=== PATIENT | male | born 1945 | race Caucasian/White ===

== ENCOUNTER 2016-06-18 12:07 | Emergency (ER) | payer MEDICARE, MEDICAID ==
[2016-06-18] MEDS ORDERED: ASPIRIN CHEW 81 MG TABLET PO STA (13:10)
[2016-06-18] MEDS ORDERED: ASPIRIN CHEW 81 MG TABLET ONE (13:24)
== END 2016-06-18 14:45 | disposition home or self-care (01) ==
DX: R07.9 Chest pain, unspecified (principal); I10 Essential (primary) hypertension; J44.9 Chronic obstructive pulmonary disease, unspecified; F17.200 Nicotine dependence, unspecified, uncomplicated
CPT/HCPCS: 36415; 71020; 80053; 83690; 83880; 84484; 85025; 85610; 85730; 93005; 93010; 99284; 99285; A9270

== ENCOUNTER 2017-04-08 14:53 | Outpatient (CLI) | payer MEDICARE, MEDICAID | END 2017-04-08 14:54 | disposition critical access hospital (66) | LOC: EMS 14:53 | PROVIDERS: ATTEND Surgery | DX: R55 Syncope and collapse (principal); R20.0 Anesthesia of skin; H53.9 Unspecified visual disturbance; R41.0 Disorientation, unspecified | CPT/HCPCS: A0425; A0427 ==

== ENCOUNTER 2017-04-08 15:18 | Inpatient (IN) | payer MEDICARE, MEDICAID ==
--- NOTE | 2017-04-08 15:30 | ED Physician Documentation ---
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 denies: Difficulty speaking, Headache, Head injury Endocrine: denies: Easy bruising / bleeding Immunocompromised: denies: Immunocompromised PD PAST MEDICAL HISTORY - Past Medical History Cardiovascular: Hypertension Respiratory: COPD - Past Surgical History Past Surgical History: Yes - Present Medications Home Medications: Ambulatory Orders Medication Instructions Recorded Confirmed Atenolol 100 mg PO DAILY 06/18/16 04/08/17 Benazepril HCl 20 mg PO DAILY 06/18/16 04/08/17 Chlorhexidine Gluconate 15 ml PO DAILY 04/08/17 04/08/17 Fluticasone/Salmeterol [Advair 1 puffs INH DAILY 04/08/17 04/08/17 250-50 Diskus] Tadalafil [Cialis] 10 mg PO PRN PRN 04/08/17 04/08/17 - Allergies Allergies/Adverse Reactions: Allergies Allergy/AdvReac Type Severity Reaction Status Date / Time Penicillins Allergy Unknown Verified 04/08/17 15:38 - Social History Does the pt smoke?: Yes Smoking Status: Current every day smoker Does the pt drink ETOH?: Yes PD ED PE NORMAL - Vitals Vital signs reviewed: Yes - General General: Alert and oriented X 3 - HEENT HEENT: PERRL, EOMI, Other (R visla field deficit) - Neck Neck: Supple, no meningeal sign - Cardiac Cardiac: RRR - Respiratory Respiratory: No respiratory distress, Clear bilaterally - Abdomen Abdomen: Soft, Non tender - Derm Derm: Normal color - Neuro Neuro: Alert and oriented X 3, Normal speech. No: psychiatric aide 2-12 intact (dec sensation R face), No motor deficit (R leg barely moves vs gravity), No sensory deficit (dec to right side) Eye Opening: Spontaneous Motor: Obeys Commands Verbal: Oriented GCS Score: 15 Results - Vitals Vitals: Vital Signs - 24 hr 04/08/17 04/08/17 04/08/17 15:22 15:49 15:52 Temperature 36.4 C L Heart Rate 58 L 60 53 L Respiratory 15 14 Rate Blood Pressure 193/119 H 176/123 H 179/97 H O2 Saturation 100 100 04/08/17 04/08/17 04/08/17 16:05 16:07 16:26 Temperature Heart Rate 56 L 56 L 57 L Respiratory 12 16 16 Rate Blood Pressure 204/107 H 175/96 H 161/83 H O2 Saturation 100 98 100 04/08/17 16:58 Temperature Heart Rate 54 L Respiratory 12 Rate Blood Pressure 153/95 H O2 Saturation 99 Oxygen O2 Source Nasal cannula - EKG (time done) 1537 Rate: Rate (enter#) Rhythm: NSR [place]: Normal Intervals: Wide QRS (borderline) Ischemia: Normal ST segments - Labs Labs: Laboratory Tests 04/08/17 04/08/17 04/08/17 15:21 15:21 15:44 WBC 6.7 RBC 4.72 Hgb 15.4 Hct 45.2 MCV 95.7 H MCH 32.7 H MCHC 34.2 RDW 13.0 Plt Count 117 L MPV 8.0 Neut # 4.3 Lymph # 1.6 [place] # 0.7 Eos # 0.1 Baso # 0.0 Absolute Nucleated RBC 0.01 Nucleated RBC % 0.1 PT 11.6 INR 1.0 Sodium 135 Potassium 4.1 Chloride 103 Carbon Dioxide 25 Anion Gap 7.0 BUN 22 H Creatinine 1.0 Estimated GFR (MDRD) 74 L Glucose 93 Calcium 9.0 - Rads (name of study) CTH Radiology: See rad report (neg) CTA head Radiology: See rad report (unremarkable) CTA neck Radiology: See rad report (unremarkable) PD MEDICAL DECISION MAKING - ED course ED course: code stroke well within 3 hr window pt to CT had labetalol ready but BP declined s intervention [place] neuro on telestroke and evaluated pt at 1550 his sx improving - now no weakness at all, decreasing numbness, still with visual loss furthermore he recalls a prior head injury in [place] 20 yr ago where he was hospitalized and surgery was considered but he does not know if he had bleeding in the brain at that time given possible prior ICH 2/2 trauma and BP and improving sx and low NIHSS neuro does not rec TPA at this time but would like to get stat CTA head and neck to determine possible plan of care CTAs neg sx resolved except visal field defect neuro rec no TPA or IR intervention and to admit [place] for rest of stroke wup such as MRI, serial neuro exams etc gave asa spoke to hospitalist Dr Douglas at 1710 - TPA CVA checklist Inclusion crititeria: positive: Sig neuro deficit, CT no bleed, Onset know < 4.5 hr Absolute contraindications: negative: CT shows bleed, CT shows major est CVA, Known bleeding disorder, Surgery/trauma < 15 days, Seizure at onset, Internal bleed < 22 days, Brain/spine surg < 3 m, Head trauma < 3 m, CVA < 3 months, Any hx ICH, Any hx brain aneurysm, Any hx brain AVM, Any hx brain tumor, Suspect SAH Relative contraindications: negative: Too mild, Rapid improvement, Glusose <50 > 400, Life expectancy < 1 yr, Severe comorbid illness, Bacterial endocarditis, Severe hepatic dz, Severe renal dz, Hemorrhagic eye condition, Septic thrombophlebitis, Infected AV shunt, On coumadin, , Advanced age, Left heart thrombus Absolute contraindications if 3-4.5 hr: negative: Coumadin (any INR), Age > 80, Combo prior CVA & DM Departure - Departure Disposition: ED Place in Observation Clinical Impression: Cerebrovascular accident (CVA) Condition: Fair NIHSS - Time Time: 15:20 - Level of Consciousness Level of consciousness: (0) Alert, Keenly responsive LOC Questions: (0) Answers both Q's correct LOC Commands: (0) Performs both correctly - Gaze Best Gaze: (0) Normal - Visual Visual: (1) Partial hemianopia (states vision better now) - Facial Palsy Facial Palsy: (0) Normal, symmetrical movement - Motor Arms (both separate) Motor Arm (right): (0) No drift Motor Arm (left): (0) No drift - Motor Legs (both separate) Motor Leg (right): (2) Some effort against gravity Motor Leg (left): (0) No drift - Limb Ataxia Limb Ataxia: (0) Absent - Sensory Sensory: (1) Sugb-ga-aosorkyx loss - Best Language Best Language: (0) No aphasia - Dysarthria Dysarthria: (0) Normal - Extinction and Inattention (formally neg Extinction and inattention: (0) No abnormality - Total Score/Results Total Score/Result: 4
[2017-04-08 15:38] LABS: BASOPHILS % (AUTO) 0.7 %; EOSINOPHILS # (AUTO) 0.1 10^3/uL (0.0-0.7); EOSINOPHILS % (AUTO) 1.4 %; HGB - HEMOGLOBIN 15.4 g/dL (14.0-18.0); LYMPHOCYTES # (AUTO) 1.6 10^3/uL (1.5-3.5); LYMPHOCYTES % (AUTO) 23.9 %; MEAN CORPUSCULAR HEMOGLOBIN 32.7 pg (27.0-31.0); MEAN CORPUSCULAR HGB CONC 34.2 g/dL (32.0-36.0); MEAN CORPUSCULAR VOLUME 95.7 fL (80.0-94.0); MONOCYTES # (AUTO) 0.7 10^3/uL (0.0-1.0); MONOCYTES % (AUTO) 10.1 %; NEUTROPHILS # (AUTO) 4.3 10^3/uL (1.5-6.6); NEUTROPHILS % (AUTO) 63.9 %; PLT - PLATELET COUNT 117 10^3/uL (130-450); RED BLOOD COUNT 4.72 10^6/uL (4.70-6.10); WHITE BLOOD COUNT 6.7 x10^3/uL (4.8-10.8)
--- NOTE | 2017-04-08 15:43 | CT Report ---
EXAM: CT HEAD EXAM DATE: 04/08/2017 03:34 PM. CLINICAL HISTORY: Right side numbness and right leg weakness, onset 1415. COMPARISON: None. TECHNIQUE: Multiaxial CT images were obtained from the foramen magnum to the vertex. Reformats: Coron al. IV contrast: None. In accordance with CT protocol optimization, one or more of the following dose reduction techniques w ere utilized for this exam: automated exposure control, adjustment of mA and/or KV based on patient s ize, or use of iterative reconstructive technique. FINDINGS: Parenchyma: No intraparenchymal hemorrhage. No evidence of mass, midline shift, or CT findings of inf arction. Kaminski-white differentiation is distinct. Extraaxial Spaces: Normal for age. No subdural or epidural collections identified. Ventricles: Normal in size and position. Sinuses and Orbits: Imaged paranasal sinuses, orbits, and mastoids show no significant abnormality. Bones: No evidence of fracture or calvarial defect. Other: None. IMPRESSION: Normal head CT. [facility] The call report notification system was initiated by Dr. Mihir Santiago at 15:39 hrs on 04/08/17. The above findings were discussed with Dr. Ospina by Dr. Mihir Santiago at 15:41 hrs on 04/08/17. Referring Provider Line: [phone] SITE ID: [id number]
[2017-04-08] MEDS ORDERED: LABETALOL 20 MG/4 ML SYRINGE IVP STA (15:49)
[2017-04-08 15:54] LABS: PT - PROTHROMBIN TIME 11.6 secs (9.9-12.6)
[2017-04-08] MEDS ORDERED: IOPAMIDOL-300 100 ML VIAL ONE (16:15)
[2017-04-08] MEDS ORDERED: IOPAMIDOL-300 100 ML VIAL IVP ONE (16:39)
[2017-04-08] MEDS ORDERED: ASPIRIN CHEW 81 MG TABLET PO STA (16:58)
--- NOTE | 2017-04-08 17:10 | CT Report ---
EXAM: CT ANGIOGRAM NECK EXAM DATE: 04/08/2017 04:39 PM. CLINICAL HISTORY: Syncope, R numbness, R vision loss. COMPARISON: CT scan and CT angiogram of the head 04/08/2017. TECHNIQUE: Routine axial helical imaging was performed from the skull base through the aortic arch. R econstructions: Routine multiplanar 3D MIP reconstructions. IV Contrast: 80 cc Isovue 300. Evaluation of arterial stenosis is based on a NASCET method of measurement. In accordance with CT protocol optimization, one or more of the following dose reduction techniques w ere utilized for this exam: automated exposure control, adjustment of mA and/or KV based on patient s ize, or use of iterative reconstructive technique. FINDINGS: Moderate tortuosity with mild atherosclerotic intimal thickening and calcification is seen at the aor tic arch. Origin of great vessels off the arch is partially obscured by streak artifact from dense contrast in the left brachiocephalic vein. This particularly obscures the origin of the left common carotid arter y. There is apparent conjoined origin of right brachiocephalic and left common carotid arteries. Visu alized great vessels are patent. Right Carotid: The common carotid, internal carotid, and external carotid arteries are widely patent. No dissection, significant atherosclerotic plaque, or calcification identified. Mild atherosclerotic intimal thickening with minimal calcification is seen at the CCA bifurcation. No significant stenosi s. Left Carotid: The common carotid, internal carotid, and external carotid arteries are widely patent. No dissection, significant atherosclerotic plaque, or calcification identified. Mild atherosclerotic intimal thickening and vascular calcification is seen at the CCA bifurcation. No significant stenosis . Vertebrals: The vertebrobasilar system shows no stenoses. Left vertebral artery is dominant. Intracranial Circulation: (Please see report of CT angiogram performed same time.) Other: Moderate interstitial bullous changes seen in the visualized upper lung zones, greater on the right. Biapical pleural thickening and scarring is noted. The muscle and fascial planes of the neck are unremarkable. No lytic or blastic bony lesions are seen. Mild to moderate spondylosis is seen throughout the mid an d lower cervical spine. Right foraminal stenosis is seen at C3-C4 and C4-C5. IMPRESSION: 1. Unremarkable CT angiogram of the extracranial circulation. No significant stenosis. No dissection. 2. Mild atherosclerotic intimal thickening and calcification at the CCA bifurcation bilaterally. No s ignificant stenosis. 3. The left vertebral artery is dominant. Critical test: Findings are discussed with referring neurologist on 04/08/2017 at approximately 1700 hrs. [facility] Referring Provider Line: [phone] SITE ID: [id number]
--- NOTE | 2017-04-08 17:14 | CT Preliminary Report ---
Exam: CT HEAD ANGIO IMPRESSION: CT Head with contrast: 1. No abnormal intracranial enhancement. 2. No acute intracranial abnormality. CTA Head: 1. Unremarkable CT angiogram of the intracranial circulation. No significant stenosis. No aneurysm. Critical test: Findings are discussed with referring treating neurologist on 04/08/2017 at [facility] 1700 hrs. [facility] SITE ID: [id number]
--- NOTE | 2017-04-08 17:15 | CT Report ---
EXAM: CT ANGIOGRAM HEAD. CT SCAN OF THE HEAD WITH CONTRAST. EXAM DATE: 04/08/2017 04:39 PM CLINICAL HISTORY: Syncope, R numbness, visual loss. COMPARISON: CT scan of the head without contrast earlier in the day 04/08/2017. CT Deanna Gram of the neck 04/08/2017. TECHNIQUE: - CT Scan Head: Using a multidetector scanner, axial images were acquired from the foramen magnum to the skull vertex following contrast administration. - CT Angiogram: Using a multidetector scanner, high-resolution axial images were acquired from the sk ull base through vertex following rapid infusion of intravenous contrast. Reformats: Multiplanar MIP reformats were reconstructed. Nascet criteria used for stenosis measurement. IV Contrast: 80 cc Isovue 300. In accordance with CT protocol optimization, one or more of the following dose reduction techniques w ere utilized for this exam: automated exposure control, adjustment of mA and/or KV based on patient s ize, or use of iterative reconstructive technique. FINDINGS: POST-CONTRAST HEAD: No abnormal intracranial enhancement is seen. No mass or hemorrhage is seen. CT ANGIOGRAM HEAD: RIGHT: Internal Carotid artery: No evidence of dissection. No evidence of aneurysm along the intracranial IC A. Anterior Cerebral Artery: Patent without significant stenosis, aneurysm, or vascular malformation. Middle Cerebral Artery: Patent without significant stenosis, aneurysm, or vascular malformation. Posterior Cerebral Artery: Patent without significant stenosis, aneurysm, or vascular malformation. Posterior Communicating Artery: Not visualized. Vertebral Artery: Patent without significant stenosis. No evidence of dissection. Small in caliber, p rimarily terminating as the right PICA. Small distal communication to the basilar artery is seen. LEFT: Internal Carotid artery: No evidence of dissection. No evidence of aneurysm along the intracranial IC A. Anterior Cerebral Artery: Patent without significant stenosis, aneurysm, or vascular malformation. Middle Cerebral Artery: Patent without significant stenosis, aneurysm, or vascular malformation. Posterior Cerebral Artery: Patent without significant stenosis, aneurysm, or vascular malformation. Posterior Communicating Artery: Not visualized. Vertebral Artery: Patent without significant stenosis. No evidence of dissection. Dominant, primarily forming the basilar artery. CENTRAL: Anterior Communicating Artery: Patent. No aneurysm. Basilar Artery: Patent without significant stenosis. No aneurysm. DURAL VENOUS SINUSES AND MAJOR CENTRAL VEINS: Patent. IMPRESSION: CT Head with contrast: 1. No abnormal intracranial enhancement. 2. No acute intracranial abnormality. CTA Head: 1. Unremarkable CT angiogram of the intracranial circulation. No significant stenosis. No aneurysm. Critical test: Findings are discussed with referring treating neurologist on 04/08/2017 at [facility] 1700 hrs. [facility] Referring Provider Line: [phone] SITE ID: [id number]
[2017-04-08] MEDS ORDERED: TEMAZEPAM 15 MG CAPSULE PO PRN (17:17)
[2017-04-08] MEDS ORDERED: HYDROcod/ACETAM 5/325 MG TABLET PO PRN (17:17)
[2017-04-08] MEDS ORDERED: ONDANSETRON ODT 4 MG TABLET TL PRN (17:17)
[2017-04-08] MEDS ORDERED: SODIUM CHLORIDE FLUSH 0.9% 10 ML SYRINGE IVP PRN (17:17)
[2017-04-08] MEDS ORDERED: ONDANSETRON 4 MG/2 ML VIAL IVP PRN (17:17)
[2017-04-08] MEDS: SODIUM CHLORIDE FLUSH 0.9% 10 ML SYRINGE IVP SCH ×2 (19:15→20:59)
[2017-04-08] MEDS: ATORVASTATIN 40 MG TABLET PO SCH ×2 (19:15→20:59)
--- NOTE | 2017-04-08 20:13 | MRI Report ---
EXAM: MRI BRAIN WITHOUT CONTRAST EXAM DATE: 04/08/2017 06:23 PM. CLINICAL HISTORY: 71-year-old man with TIA/near syncope. COMPARISON: CTA done earlier the same day. TECHNIQUE: Multiplanar, multisequence T1-weighted and fluid-sensitive MR sequences of the brain were performed. Sequences optimized for routine evaluation. Other: None. IV Contrast: None. FINDINGS: Parenchyma: Geographic region of restricted diffusion with mild corresponding FLAIR hyperintensity is present throughout the medial left occipital lobe and posterior temporal lobe, consistent with acute infarct in the right PATIENT COORDINATOR territory. Affected parenchyma measures approximately 7.5 x 2.1 cm in maxim um axial dimensions. No evidence of hemorrhage. The remainder of the parenchyma demonstrates mild burden of nonspecific FLAIR hyperintensities in the deep cerebral and periventricular white matter, most consistent with sequelae of chronic small vesse l ischemic disease and a common finding in this age group. Pituitary: Unremarkable. Ventricles and Extra-axial Spaces: Ventricles are symmetric and normal in size for age. Extra-axial s paces are unremarkable. Orbits: Unremarkable. Sinuses: Paranasal sinuses and mastoid air cells are clear. Major Vascular Flow Voids: Intact. IMPRESSION: 1. Acute infarct (6 hours to 7 days) in the medial left occipital lobe and posterior temporal lobe. N o hemorrhage. 2. Mild white matter changes, most consistent with sequelae of chronic small vessel ischemic disease and a common finding in this age group. [facility] CRITICAL RESULT: The above findings were discussed with Norma, the patient's nurse by Dr. Lang licea at 20:10 hrs on 04/08/17. She will convey the findings to the hospitalist. Referring Provider Line: [phone] SITE ID: [id number]
[2017-04-08] MEDS ORDERED: CLOPIDOGREL 300 MG TABLET PO SCH (20:39)
[2017-04-09 06:15] LABS: ALBUMIN 3.5 g/dL (3.2-5.5); ALBUMIN/GLOBULIN RATIO 1.2 (1.0-2.2); BILIRUBIN,TOTAL 1.3 mg/dL (0.2-1.0); CALCIUM 8.6 mg/dL (8.5-10.3); TOTAL PROTEIN 6.4 g/dL (6.7-8.2)
[2017-04-09] MEDS: SODIUM CHLORIDE FLUSH 0.9% 10 ML SYRINGE IVP SCH ×2 (07:30→12:56)
[2017-04-09] MEDS: ATENOLOL 25 MG TABLET PO SCH (08:08)
[2017-04-09] MEDS: POLYETHYLENE GLYCOL 3350 17 GM PACKET PO SCH (08:10)
[2017-04-09] MEDS: ASPIRIN CHEW 81 MG TABLET PO SCH (08:10)
[2017-04-09] MEDS ORDERED: LISINOPRIL 20 MG TABLET PO SCH (09:00)
[2017-04-09] MEDS: ACETAMINOPHEN 325 MG TABLET PO PRN (10:36)
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
--- NOTE | 2017-04-09 18:04 | PROVIDER PROGRESS NOTE ---
Subjective - Prog Note Date Prog Note Date: 04/09/17 Prog Note Time: 17:51 - Subjective Pt reports feeling: No change Subjective: he is still confused, forgetful, and not able to see out of his right eye. but gets up to bathroom and able to eat. but can't see very well. denies headache. still intermittently tearful and will be embarrassed. Asks me several times why is he here. Current Medications - Current Medications Current Medications: Active Medications Acetaminophen (Tylenol) 650 mg PO Q4HR PRN PRN Reason: Pain 1 to 4 Last Admin: 04/09/17 10:36 Dose: 650 mg Acetaminophen/Hydrocodone Bitart ([place] 5/325) 1 tab PO Q4HR PRN PRN Reason: Pain 5 to 7 Aspirin ([place]ito Aspirin) 162 mg PO DAILY [facility] Last Admin: 04/09/17 08:10 Dose: 162 mg Atenolol (Tenormin) 100 mg PO DAILY [facility] Last Admin: 04/09/17 08:08 Dose: 100 mg Atorvastatin Calcium (Lipitor) 40 mg PO QPM [facility] Last Admin: 04/08/17 20:59 Dose: 40 mg Ondansetron HCl (Zofran Inj) 4 mg IVP Q6HR PRN PRN Reason: Nausea / Vomiting Ondansetron HCl (Zofran Odt) 4 mg TL Q6HR PRN PRN Reason: Nausea / Vomiting Polyethylene Glycol (Miralax) 17 gm PO DAILY [facility] Last Admin: 04/09/17 08:10 Dose: 17 gm Sodium Chloride (Normal Saline Flush 0.9%) 10 ml IVP PRN PRN PRN Reason: NEEDED PER PROVIDER ORDERS Sodium Chloride (Normal Saline Flush 0.9%) 10 ml IVP Q8HR [facility] Last Admin: 04/09/17 12:56 Dose: 10 ml Temazepam (Restoril) 15 mg PO QPM PRN PRN Reason: Insomnia Atenolol 100 mg PO DAILY 06/18/16 Benazepril HCl 20 mg PO DAILY 06/18/16 Chlorhexidine Gluconate 15 ml PO DAILY 04/08/17 Fluticasone/Salmeterol [Advair 250-50 Diskus] 1 puffs INH DAILY 04/08/17 Tadalafil [Cialis] 10 mg PO PRN PRN 04/08/17 Objective - Vital Signs/Intake & Output Reviewed Vital Signs: Yes Vital Signs: Vital Signs x48h Temp Pulse Resp BP Pulse Ox 04/09/17 16:11 36.7 C 59 L 20 149/90 H 95 04/09/17 12:57 37.1 C 64 18 147/82 H 94 Intake & Output: Intake & Output 04/06/17 04/07/17 04/08/17 04/09/17 23:59 23:59 23:59 23:59 Intake Total 250 920 Balance 250 920 - Objective General Appearance: positive: No acute distress, Alert, Other (tearful, forgetful) Eyes Bilateral: positive: PERRL, EOMI ENT: positive: Pharynx nml Neck: positive: No JVD, Lymphadenopathy (R) (shotty), Lymphadenopathy (L) ( shotty). negative: Stiff neck, Carotid bruit Respiratory: positive: Chest non-tender. negative: Wheezes, Rales, Rhonchi Cardiovascular: positive: Regular rate & rhythm. negative: Gallop/S4, Friction rub Abdomen: positive: Non-tender, No organomegaly, Nml bowel sounds, No distention Skin: positive: Warm, Dry Extremities: positive: Full ROM, No pedal edema Neurologic/Psychiatric: positive: Motor nml (but cerebellar affected mildly), Disoriented to time. negative: CN's nml (2-12) (subtle right facial droop), Mood/affect nml (tearful) - Lab Results Fish Bones: 04/08/17 15:21 04/09/17 05:45 Other Labs: Lab Results x24hrs 04/09/17 Range/Units 05:45 Sodium 136 (135-145) mmol/L Potassium 4.0 (3.5-5.0) mmol/L Chloride 107 (101-111) mmol/L Carbon Dioxide 22 (21-32) mmol/L Anion Gap 7.0 (6-13) BUN 17 (6-20) mg/dL Creatinine 1.0 (0.6-1.2) mg/dL Estimated GFR (MDRD) 74 L (>89) Glucose 100 (70-100) mg/dL Calcium 8.6 (8.5-10.3) mg/dL Total Bilirubin 1.3 H (0.2-1.0) mg/dL AST 21 (10-42) IU/L ALT 24 (10-60) IU/L Alkaline Phosphatase 80 (42-121) IU/L Total Protein 6.4 L (6.7-8.2) g/dL Albumin 3.5 (3.2-5.5) g/dL Globulin 2.9 (2.1-4.2) g/dL Albumin/Globulin Ratio 1.2 (1.0-2.2) Assessment/Plan - Problem List (1) Left middle cerebral artery stroke Impression: symptoms stable. no worsening. Plan: OT and speech eval for cognition continue plavix, asa still holding MARCO to allow permissive HTN change to inpatient status from OBV. case discussed with his Cynthia @[phone]. (2) HTN (hypertension) Impression: 120's to 140's systolic. No change in atenolol. Qualifiers: Hypertension type: essential hypertension Qualified Code(s): I10 - Essential (primary) hypertension (3) COPD (chronic obstructive pulmonary disease) Impression: with hx of tobacco abuse. still declines patch. exam neg for acute exacerbation. no change in managment.
[2017-04-09] MEDS: ATORVASTATIN 40 MG TABLET PO SCH (20:40)
[2017-04-10 06:13] LABS: CHOL/HDL RATIO 3.4 (<5.0); CHOLESTEROL 132 mg/dL; HDL CHOLESTEROL 39 mg/dL; LDL CHOLESTEROL,CALCULATED 84 mg/dL; LDL/HDL RATIO 2.2 (<3.6); VLDL CHOLESTEROL 9 mg/dL
[2017-04-10] MEDS: SODIUM CHLORIDE FLUSH 0.9% 10 ML SYRINGE IVP SCH ×3 (06:28→20:40)
[2017-04-10] MEDS: ATENOLOL 25 MG TABLET PO SCH (08:51)
[2017-04-10] MEDS: POLYETHYLENE GLYCOL 3350 17 GM PACKET PO SCH (08:53)
[2017-04-10] MEDS: ASPIRIN CHEW 81 MG TABLET PO SCH (08:53)
[2017-04-10] MEDS: BUDESONIDE 0.5 MG/2 ML NEB INH SCH ×2 (09:25→19:52)
[2017-04-10] MEDS: FORMOTEROL FUMARATE NEB 20 MCG/2 ML INH SCH ×2 (09:25→19:52)
--- NOTE | 2017-04-10 15:18 | PROVIDER PROGRESS NOTE ---
Subjective - Prog Note Date Prog Note Date: 04/10/17 Prog Note Time: 15:16 - Subjective Pt reports feeling: No change Subjective: he really can't remember much. I have to repeat constantly he's had a stroke. he knows he's in the hospital and very cooperative. walks in room and hallway. but memory, word finding, vision, all affected. he has stopped crying when I see him wheezing a bit more today. Current Medications - Current Medications Current Medications: Active Medications Acetaminophen (Tylenol) 650 mg PO Q4HR PRN PRN Reason: Pain 1 to 4 Last Admin: 04/09/17 10:36 Dose: 650 mg Acetaminophen/Hydrocodone Bitart ([place] 5/325) 1 tab PO Q4HR PRN PRN Reason: Pain 5 to 7 Aspirin ([place] Tito Aspirin) 162 mg PO DAILY [facility] Last Admin: 04/10/17 08:53 Dose: 162 mg Atenolol (Tenormin) 100 mg PO DAILY [facility] Last Admin: 04/10/17 08:51 Dose: 100 mg Atorvastatin Calcium (Lipitor) 40 mg PO QPM [facility] Last Admin: 04/09/17 20:40 Dose: 40 mg Budesonide (Pulmicort) 0.5 mg INH RTBID [facility] Last Admin: 04/10/17 09:25 Dose: 0.5 mg Formoterol Fumarate (Perforomist) 20 mcg INH RTBID [facility] Last Admin: 04/10/17 09:25 Dose: 20 mcg Ondansetron HCl (Zofran Inj) 4 mg IVP Q6HR PRN PRN Reason: Nausea / Vomiting Ondansetron HCl (Zofran Odt) 4 mg TL Q6HR PRN PRN Reason: Nausea / Vomiting Polyethylene Glycol (Miralax) 17 gm PO DAILY [facility] Last Admin: 04/10/17 08:53 Dose: Not Given Sodium Chloride (Normal Saline Flush 0.9%) 10 ml IVP PRN PRN PRN Reason: NEEDED PER PROVIDER ORDERS Sodium Chloride (Normal Saline Flush 0.9%) 10 ml IVP Q8HR [facility] Last Admin: 04/10/17 13:47 Dose: 10 ml Temazepam (Restoril) 15 mg PO QPM PRN PRN Reason: Insomnia Atenolol 100 mg PO DAILY 06/18/16 Benazepril HCl 20 mg PO DAILY 06/18/16 Chlorhexidine Gluconate 15 ml PO DAILY 04/08/17 Fluticasone/Salmeterol [Advair 250-50 Diskus] 1 puffs INH DAILY 04/08/17 Tadalafil [Cialis] 10 mg PO PRN PRN 04/08/17 Objective - Vital Signs/Intake & Output Reviewed Vital Signs: Yes Vital Signs: Vital Signs x48h Temp Pulse Pulse Pulse Pulse Resp BP 04/10/17 12:53 36.6 C 62 20 04/10/17 12:48 71 62 190/99 H 04/10/17 10:00 36.9 C 58 L 16 04/10/17 09:25 70 16 04/10/17 09:00 71 73 190/99 H 04/10/17 08:30 36.7 C 72 20 BP BP BP Pulse Ox 04/10/17 12:53 138/70 H 96 04/10/17 12:48 142/86 H 04/10/17 10:00 154/76 H 96 04/10/17 09:25 04/10/17 09:00 161/98 H 04/10/17 08:30 166/87 H 93 Intake & Output: Intake & Output 04/07/17 04/08/17 04/09/17 04/10/17 23:59 23:59 23:59 23:59 Intake Total 250 1120 400 Balance 250 1120 400 - Objective General Appearance: positive: No acute distress, Alert, Other (well nourished well developed white male who looks stated age.) Eyes Bilateral: positive: PERRL, EOMI ENT: positive: Pharynx nml Neck: positive: No JVD. negative: Stiff neck, Carotid bruit Respiratory: positive: Chest non-tender, Other (when he was admitted he had some rhonchi and occ cough. I haven't heard it since.). negative: Wheezes, Rales, Rhonchi Cardiovascular: positive: Regular rate & rhythm. negative: JVD present, Gallop/ S4 Abdomen: positive: Non-tender, No organomegaly, Nml bowel sounds, No distention Skin: positive: Warm, Dry Extremities: positive: Full ROM, No pedal edema. negative: Joint swelling Neurologic/Psychiatric: positive: Mood/affect nml, Disoriented to place ( occasionally), Disoriented to time. negative: CN's nml (2-12) (very subtle right facial droop), Motor nml (slight gait ataxia, no focal loss) - Lab Results Fish Bones: 04/08/17 15:21 04/09/17 05:45 Other Labs: Lab Results x24hrs 04/10/17 Range/Units 05:45 Triglycerides 46 ( - 149) mg/dL Cholesterol 132 ( - 199) mg/dL LDL Cholesterol, Calc 84 ( - 129) mg/dL VLDL Cholesterol 9 mg/dL HDL Cholesterol 39 L (60 - ) mg/dL LDL/HDL Ratio 2.2 (<3.6) Cholesterol/HDL Ratio 3.4 (<5.0) Assessment/Plan - Problem List (1) Left middle cerebral artery stroke Impression: symptoms stable. no worsening. Plan: OT and speech eval for cognition: Clear word retrieval deficits. He had some difficulty determing what the items on the test were, and had to move his head around to bring the image where I could see it. His expressive language is somewhat vague and tangential, and at times difficulty to follow. He endorses that he feels confused and that he has trouble with his memory continue plavix, asa still holding MARCO to allow permissive HTN changed to inpatient status from OBV on 04/10 case discussed with his Cynthia @[phone] 04/09. She has spoken to social work today and gotten a list of services. dismayed to find out he can't drive. we have submitted request for review for inpatient rehab to see if he qualifies. (2) HTN (hypertension) Impression: 130's to 190's today after being 120's yesterday. No change in atenolol. Qualifiers: Hypertension type: essential hypertension Qualified Code(s): I10 - Essential (primary) hypertension (3) COPD (chronic obstructive pulmonary disease) Impression: with hx of tobacco abuse. still declines patch. exam neg for acute exacerbation but does have wheezing today can't resume his advair but will order pulmicort and fomoterol.
[2017-04-10] MEDS: ATORVASTATIN 40 MG TABLET PO SCH (20:40)
[2017-04-10] MEDS: ACETAMINOPHEN 325 MG TABLET PO PRN (20:44)
[2017-04-11] MEDS: SODIUM CHLORIDE FLUSH 0.9% 10 ML SYRINGE IVP SCH (06:23)
--- NOTE | 2017-04-11 06:59 | Discharge Plan ---
Discharge Plan Disposition: 02 Transfer Acute Care Hosp Condition: Good Diet: Regular Activity Restrictions: Activity as Tolerated Shower Restrictions: No Driving Restrictions: Yes (no driving) Instruction Topics: Aphasia, Stroke After Moods Depression No Smoking: If you smoke, Please STOP! Call for help. Follow-up with: Zoila Saucedo ARNP [Primary Care Provider] -
[2017-04-11] MEDS: BUDESONIDE 0.5 MG/2 ML NEB INH SCH (08:05)
[2017-04-11] MEDS: FORMOTEROL FUMARATE NEB 20 MCG/2 ML INH SCH (08:05)
[2017-04-11] MEDS: ATENOLOL 25 MG TABLET PO SCH (08:49)
[2017-04-11] MEDS: POLYETHYLENE GLYCOL 3350 17 GM PACKET PO SCH (08:50)
[2017-04-11] MEDS: ASPIRIN CHEW 81 MG TABLET PO SCH (08:50)
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
[2017-04-11 13:17] VITALS: BP 172/81
== END 2017-04-11 13:29 | DRG 66 ==
LOC: EDUNIT# → ED 15:18 → OBS 17:17 → OBSVTOIN 04-09 11:59 → MS2 04-09 14:25
PROVIDERS: ADMIT Specialist; ATTEND Specialist
DX: I63.9 Cerebral infarction, unspecified (principal); R41.89 Other symptoms and signs involving cognitive functions and awareness; R29.810 Facial weakness; R27.0 Ataxia, unspecified; H53.8 Other visual disturbances; R47.89 Other speech disturbances; I10 Essential (primary) hypertension; J44.9 Chronic obstructive pulmonary disease, unspecified; M10.9 Gout, unspecified; R35.1 Nocturia; Z66 Do not resuscitate; R40.2412 Glasgow coma scale score 13-15, at arrival to emergency department; Z79.51 Long term (current) use of inhaled steroids; Z79.899 Other long term (current) drug therapy; Z72.89 Other problems related to lifestyle; Z87.891 Personal history of nicotine dependence; Z87.820 Personal history of traumatic brain injury
CPT/HCPCS: 36415; 70450; 70496; 70498; 70551; 80048; 80053; 80061; 83721; 85025; 85610; 93005; 93306; 94640; 94664; 99284; 99285

== ENCOUNTER 2017-04-11 13:28 | Outpatient (CLI) | payer MEDICARE, MEDICAID | END 2017-04-11 13:29 | LOC: EMS 13:28 | PROVIDERS: ATTEND Surgery | DX: I63.9 Cerebral infarction, unspecified (principal) | CPT/HCPCS: A0170; A0425; A0428 ==

== ENCOUNTER 2017-04-24 14:13 | Outpatient (CLI) | payer MEDICARE, MEDICAID | END 2017-04-24 14:14 | disposition critical access hospital (66) | LOC: EMS 14:13 | PROVIDERS: ATTEND Surgery | DX: R53.81 Other malaise (principal); R53.1 Weakness; R06.02 Shortness of breath; R05 Cough | CPT/HCPCS: A0425; A0427 ==

== ENCOUNTER 2017-04-24 14:46 | Emergency (ER) | payer MEDICARE, MEDICAID ==
--- NOTE | 2017-04-24 15:17 | ED Physician Documentation ---
History of Present Illness - Stated complaint Stated Complaint: FLU SYMPTOMS, SOA - Chief complaint Chief Complaint: Resp - History obtained from History obtained from: Patient, EMS - History of Present Illness Timing: Other (This is a 71-year-old gentleman with history of COPD Who was recently admitted for a mild stroke complicated by influenza. He has been home for about 2-1/2 weeks. His main complaint when I talked to him as a feeling of hopelessness and a lot of anxiety. He took some of his 's anxiety medicine , not clear which one which helped but not for long. He admits to depression and hopelessness. There is no suicidal ideation. In contrast to the nurse's notes he really denies any increased shortness of breath or cough to me, he has COPD and his symptoms there are basically at his baseline.) Review of Systems Constitutional: denies: Fever, Chills Cardiac: denies: Chest pain / pressure, Palpitations, Pedal edema, Calf pain Respiratory: reports: Cough PD PAST MEDICAL HISTORY - Past Medical History Cardiovascular: Hypertension Respiratory: COPD Neuro: CVA - Past Surgical History Past Surgical History: Yes - Present Medications Home Medications: Ambulatory Orders Medication Instructions Recorded Confirmed Atenolol 100 mg PO DAILY 06/18/16 04/08/17 Benazepril HCl 20 mg PO DAILY 06/18/16 04/08/17 Chlorhexidine Gluconate 15 ml PO DAILY 04/08/17 04/08/17 Fluticasone/Salmeterol [Advair 1 puffs INH DAILY 04/08/17 04/08/17 250-50 Diskus] Tadalafil [Cialis] 10 mg PO PRN PRN 04/08/17 04/08/17 LORazepam [Ativan] 0.5 mg PO Q6H PRN #15 tablet 04/24/17 Levofloxacin [Levaquin] 500 mg PO DAILY #7 tablet 04/24/17 - Allergies Allergies/Adverse Reactions: Allergies Allergy/AdvReac Type Severity Reaction Status Date / Time Penicillins Allergy Unknown Verified 04/08/17 15:38 - Social History Does the pt smoke?: Yes Smoking Status: Current every day smoker Does the pt drink ETOH?: Yes Does the pt have substance abuse?: No - Immunizations Immunizations are current?: Yes - POLST Patient has POLST: No PD ED PE NORMAL - Vitals Vital signs reviewed: Yes - General General: Alert and oriented X 3, No acute distress - Neck Neck: Supple, no meningeal sign, No bony TTP - Cardiac Cardiac: RRR, No murmur - Respiratory Respiratory: Other (Distant lung sounds throughout and mild rhonchi, nonlabored) - Abdomen Abdomen: Soft, Non tender - Back Back: No CVA TTP, No spinal TTP - Extremities Extremities: No edema, No calf tenderness / cord - Neuro Neuro: Alert and oriented X 3, Normal speech - Psych Psych: Normal mood, Normal affect Results - Vitals Vitals: Vital Signs - 24 hr 04/24/17 15:02 Temperature 36.3 C L Heart Rate 77 Respiratory 22 Rate Blood Pressure 148/88 H O2 Saturation 91 L Oxygen O2 Source Nasal cannula Oxygen Flow Rate 2 - EKG (time done) 1505 Rate: Rate (enter#) (75) Rhythm: NSR (With occasional PVC) Hop Bottom: Normal Intervals: Normal OR, Wide QRS (ivcd) QRS: Normal Ischemia: Normal ST segments Computer interpretation: Agree with computer - Labs Labs: Laboratory Tests 04/24/17 04/24/17 15:29 15:29 WBC 9.7 RBC 4.66 L Hgb 15.0 Hct 44.2 MCV 94.8 H MCH 32.3 H MCHC 34.1 RDW 12.8 Plt Count 219 MPV 8.0 Manual Slide Review Indicated Sodium 138 Potassium 4.3 Chloride 100 L Carbon Dioxide 26 Anion Gap 12.0 BUN 24 H Creatinine 0.9 Estimated GFR (MDRD) 83 L Glucose 117 H Calcium 9.2 Total Bilirubin 1.4 H AST 44 H ALT 46 Alkaline Phosphatase 55 Total Protein 7.5 Albumin 3.3 Globulin 4.2 Albumin/Globulin Ratio 0.8 L Lipase 20 L - Rads (name of study) 2v chest Radiology: EMP read contemporaneously (Patchy left-sided pneumonia) PD MEDICAL DECISION MAKING - ED course ED course: 71-year-old gent with history of COPD and recent stroke presents by ambulance mostly for anxiety and depression, also some may be symptoms of increased COPD with a very mild patchy left-sided pneumonia on x-ray. This was treated with Levaquin and his psychiatric symptoms are feeling much better after small dose of Ativan. He was seen by the social services counselor who arranged for [facility] to come out to his house and evaluate and cancer genetic counselor him which is a good option given his mobility problems and the fact that neither here nor his drive. Departure - Departure Disposition: 01 Home, Self Care Clinical Impression: COPD (chronic obstructive pulmonary disease) Qualifiers: COPD type: COPD with acute exacerbation Qualified Code(s): J44.1 - Chronic obstructive pulmonary disease with (acute) exacerbation Pneumonia Qualifiers: Pneumonia type: due to unspecified organism Laterality: left Lung location: lower lobe of lung Qualified Code(s): J18.1 - Lobar pneumonia, unspecified organism Depressed Qualifiers: Depression Type: major depressive disorder Major depression recurrence: single episode Active/Remission status: currently active Major depression episode severity: moderate Qualified Code(s): F32.1 - Major depressive disorder, single episode, moderate HTN (hypertension) Qualifiers: Hypertension type: essential hypertension Qualified Code(s): I10 - Essential ( primary) hypertension Condition: Good Record reviewed to determine appropriate education?: Yes Instructions: Pneumonia Dc, ED Depression Prescriptions: Levofloxacin [Levaquin] 500 mg PO DAILY #7 tablet LORazepam [Ativan] 0.5 mg PO Q6H PRN #15 tablet PRN Reason: Anxiety Comments: Return anytime if worse or if new symptoms develop. The social services counselor has arranged for [facility] mental [facility] to contact you at home within the next week to arrange for in-home counseling and evaluation.
[2017-04-24] MEDS: LORazepam 0.5 MG TABLET PO STA (15:19)
[2017-04-24 15:46] LABS: BASOPHILS # (AUTO) 0.1 10^3/uL (0.0-0.1); BASOPHILS % (AUTO) 0.7 %; EOSINOPHILS % (AUTO) 0.3 %; LYMPHOCYTES # (AUTO) 0.7 10^3/uL (1.5-3.5); LYMPHOCYTES % (AUTO) 7.6 %; MEAN CORPUSCULAR HEMOGLOBIN 32.3 pg (27.0-31.0); MEAN CORPUSCULAR HGB CONC 34.1 g/dL (32.0-36.0); MEAN CORPUSCULAR VOLUME 94.8 fL (80.0-94.0); MONOCYTES # (AUTO) 1.3 10^3/uL (0.0-1.0); MONOCYTES % (AUTO) 13.8 %; NEUTROPHILS # (AUTO) 7.5 10^3/uL (1.5-6.6); NEUTROPHILS % (AUTO) 77.6 %; PLT - PLATELET COUNT 219 10^3/uL (130-450); RED BLOOD COUNT 4.66 10^6/uL (4.70-6.10); RED CELL DISTRIBUTION WIDTH 12.8 % (12.0-15.0); WHITE BLOOD COUNT 9.7 x10^3/uL (4.8-10.8)
[2017-04-24 15:52] LABS: ALBUMIN 3.3 g/dL (3.2-5.5); ALBUMIN/GLOBULIN RATIO 0.8 (1.0-2.2); BILIRUBIN,TOTAL 1.4 mg/dL (0.2-1.0); CALCIUM 9.2 mg/dL (8.5-10.3); CREATININE 0.9 mg/dL (0.6-1.2); TOTAL PROTEIN 7.5 g/dL (6.7-8.2)
--- NOTE | 2017-04-24 15:57 | XRAY Report ---
EXAM: CHEST RADIOGRAPHY EXAM DATE: 04/24/2017 03:42 PM. CLINICAL HISTORY: Cough. COMPARISON: 06/18/2016. TECHNIQUE: 2 views. FINDINGS: Lungs/Pleura: Increased patchy and nodular opacities throughout the inferior left upper lobe and ling alexis. Right lung scarring unchanged. No pleural effusion. No pneumothorax. Hyperinflation consistent w ith COPD. Mediastinum: Normal heart size. Tortuous aorta. Other: Old right rib fractures. IMPRESSION: Patchy left upper lobe and lingular consolidation is suspicious for pneumonia. Recommend radiographic follow-up after appropriate treatment. [facility] Referring Provider Line: [phone] SITE ID: [id number]
[2017-04-24 16:09] LABS: PLATELET MORPHOLOGY NORMAL APPEARANCE (NORMAL)
[2017-04-24 16:10] LABS: PLATELET ESTIMATE, MANUAL NORMAL (130-450,000) (NORMAL)
[2017-04-24 16:13] LABS: RBC MORPHOLOGY (MULTIPLE) NORMAL APPEARANCE (NORMAL)
[2017-04-24] MEDS: levoFLOXacin 250 MG TABLET PO STA (16:13)
[2017-04-24 16:16] VITALS: BP 132/88
== END 2017-04-24 16:21 | disposition home or self-care (01) ==
LOC: EDUNIT# → ED 14:46
DX: J44.1 Chronic obstructive pulmonary disease with (acute) exacerbation (principal); J18.9 Pneumonia, unspecified organism; J44.0 Chronic obstructive pulmonary disease with (acute) lower respiratory infection; F32.1 Major depressive disorder, single episode, moderate; R94.31 Abnormal electrocardiogram [ECG] [EKG]; I10 Essential (primary) hypertension; F17.200 Nicotine dependence, unspecified, uncomplicated; Z86.73 Personal history of transient ischemic attack (TIA), and cerebral infarction without residual deficits
CPT/HCPCS: 36415; 71046; 80053; 83690; 85025; 93005; 99283; 99284

== ENCOUNTER 2017-08-03 12:14 | Outpatient (CLI) | payer MEDICARE, MEDICAID ==
[2017-08-03 18:40] LABS: CALCIUM 8.8 mg/dL (8.5-10.3); CREATININE 0.9 mg/dL (0.6-1.2)
== END 2017-08-03 12:15 | disposition home or self-care (01) ==
LOC: LAB.S 12:14
PROVIDERS: ATTEND Nurse Practitioner Family
DX: I10 Essential (primary) hypertension (principal)
CPT/HCPCS: 36415; 80048

== ENCOUNTER 2018-06-03 10:46 | Outpatient (CLI) | payer MEDICARE, MEDICAID ==
[2018-06-03 17:44] LABS: HGB - HEMOGLOBIN 15.6 g/dL (14.0-18.0); MEAN CORPUSCULAR HEMOGLOBIN 32.6 pg (27.0-31.0); MEAN CORPUSCULAR HGB CONC 33.4 g/dL (32.0-36.0); MEAN CORPUSCULAR VOLUME 97.5 fL (80.0-94.0); MEAN PLATELET VOLUME 8.8 fL (7.4-11.4); RED BLOOD COUNT 4.78 10^6/uL (4.70-6.10); RED CELL DISTRIBUTION WIDTH 13.9 % (12.0-15.0); WHITE BLOOD COUNT 6.9 x10^3/uL (4.8-10.8)
[2018-06-03 17:53] LABS: ALBUMIN 4.1 g/dL (3.2-5.5); ALBUMIN/GLOBULIN RATIO 1.3 (1.0-2.2); ALKALINE PHOSPHATASE 128 IU/L (42-121); ALT ALANINE AMINOTRANSFERASE 28 IU/L (10-60); AST ASPARTATE AMINOTRANSFERASE 26 IU/L (10-42); BILIRUBIN,TOTAL 1.2 mg/dL (0.2-1.0); BUN - BLOOD UREA NITROGEN 28 mg/dL (6-20); CALCIUM 9.3 mg/dL (8.5-10.3); CARBON DIOXIDE - CO2 29 mmol/L (21-32); CHLORIDE 100 mmol/L (101-111); CHOL/HDL RATIO 2.2 (<5.0); CHOLESTEROL 104 mg/dL; CREATININE 1.3 mg/dL (0.6-1.2); GFR - MDRD 54 (>89); GLUCOSE 116 mg/dL (70-100); HDL CHOLESTEROL 47 mg/dL; LDL CHOLESTEROL,CALCULATED 47 mg/dL; SODIUM 137 mmol/L (135-145); TOTAL PROTEIN 7.3 g/dL (6.7-8.2); VLDL CHOLESTEROL 10 mg/dL
== END 2018-06-03 10:47 | disposition home or self-care (01) ==
LOC: LAB.F 10:46
PROVIDERS: ATTEND Internal Medicine
DX: E78.5 Hyperlipidemia, unspecified (principal); I10 Essential (primary) hypertension
CPT/HCPCS: 36415; 80053; 80061; 83721; 85027

== ENCOUNTER 2020-07-04 14:09 | Outpatient (CLI) | payer MEDICARE, MEDICAID ==
[2020-07-04 20:02] LABS: BASOPHILS % (AUTO) 0.6 %; EOSINOPHILS # (AUTO) 0.1 10^3/uL (0.0-0.7); HCT - HEMATOCRIT 49.4 % (42.0-52.0); HGB - HEMOGLOBIN 16.3 g/dL (14.0-18.0); LYMPHOCYTES # (AUTO) 1.2 10^3/uL (1.5-3.5); MEAN CORPUSCULAR HEMOGLOBIN 31.2 pg (27.0-31.0); MEAN CORPUSCULAR VOLUME 94.6 fL (80.0-94.0); MEAN PLATELET VOLUME 11.2 fL (7.4-11.4); MONOCYTES # (AUTO) 0.6 10^3/uL (0.0-1.0); NEUTROPHILS # (AUTO) 4.3 10^3/uL (1.5-6.6); NEUTROPHILS % (AUTO) 69.1 %; PLT - PLATELET COUNT 131 10^3/uL (130-450); RED BLOOD COUNT 5.22 10^6/uL (4.70-6.10); RED CELL DISTRIBUTION WIDTH 13.5 % (12.0-15.0); WHITE BLOOD COUNT 6.2 x10^3/uL (4.8-10.8)
[2020-07-04 21:30] LABS: ALBUMIN 3.9 g/dL (3.2-5.5); ALBUMIN/GLOBULIN RATIO 1.3 (1.0-2.2); ALKALINE PHOSPHATASE 112 IU/L (42-121); ALT ALANINE AMINOTRANSFERASE 19 IU/L (10-60); AST ASPARTATE AMINOTRANSFERASE 20 IU/L (10-42); BILIRUBIN,TOTAL 1.2 mg/dL (0.2-1.0); BUN - BLOOD UREA NITROGEN 26 mg/dL (6-20); CALCIUM 9.9 mg/dL (8.5-10.3); CARBON DIOXIDE - CO2 32 mmol/L (21-32); CHLORIDE 99 mmol/L (101-111); CHOL/HDL RATIO 2.7 (<5.0); CHOLESTEROL 114 mg/dL; CREATININE 1.2 mg/dL (0.6-1.2); GFR - MDRD 59 (>89); GLUCOSE 96 mg/dL (70-100); HDL CHOLESTEROL 42 mg/dL; POTASSIUM 3.7 mmol/L (3.5-5.0); SODIUM 139 mmol/L (135-145); TOTAL PROTEIN 6.9 g/dL (6.7-8.2); TRIGLYCERIDES 34 mg/dL
== END 2020-07-04 14:10 | disposition home or self-care (01) ==
LOC: LAB.S 14:09
PROVIDERS: ATTEND Internal Medicine
DX: I10 Essential (primary) hypertension (principal); E78.5 Hyperlipidemia, unspecified; Z12.5 Encounter for screening for malignant neoplasm of prostate
CPT/HCPCS: 36415; 80053; 80061; 85025; G0103; 83721; 84153

== ENCOUNTER 2020-07-26 08:00 | Outpatient (CLI) | payer MEDICARE, MEDICAID ==
--- NOTE | 2020-07-26 14:14 | XRAY Report ---
PROCEDURE: Chest 3 View X-Ray INDICATIONS: UNINTENTIONAL WEIGHT LOSS/SMOKER/SOB TECHNIQUE: 2 view(s) of the chest. COMPARISON: 04/24/2017.. FINDINGS: Surgical changes and devices: None. Lungs and pleura: No pleural effusions or pneumothorax. Lungs are clear. Lungs hyperinflated sugges ting COPD. Mediastinum: Mediastinal contours are normal. Heart size is normal. Bones and chest wall: No suspicious bony abnormalities. Chronic right-sided rib fractures are stabl e. Soft tissues appear unremarkable. IMPRESSION: No acute cardiopulmonary disease process. Reviewed by: Marlen Simon MD, PhD on 07/26/2020 2:13 PM PDT Approved by: Marlen Simon MD, PhD on 07/26/2020 2:13 PM PDT Station ID: [id number]
[2020-07-26 20:36] LABS: THYROID STIMULATING HORMONE 0.53 uIU/mL (0.34-5.60)
== END 2020-07-26 23:59 | disposition home or self-care (01) ==
LOC: DI.S 08:00
PROVIDERS: ATTEND Physician Assistant Medical
DX: R63.4 Abnormal weight loss (principal); R42 Dizziness and giddiness; I48.0 Paroxysmal atrial fibrillation
CPT/HCPCS: 36415; 84443

== ENCOUNTER 2020-08-15 13:15 | Outpatient (CLI) | payer MEDICARE, MEDICAID ==
--- NOTE | 2020-08-15 15:50 | CT Report ---
PROCEDURE: Low Dose Lung Cancer Screen INDICATIONS: NICOTINE DEPENDENCY TECHNIQUE: Noncontrast low-dose 5 mm thick sections acquired from the pulmonary apices to the posterior costophr enic angles. 7 mm thick coronal and sagittal MIP reformats were then acquired. For radiation dose r eduction, the following was used: automated exposure control, adjustment of mA and/or kV according t o patient size. COMPARISON: None. FINDINGS: Image quality: Excellent. Lungs and pleura: Diffuse emphysematous change, advanced in the lung bases bilaterally and in the ri ght upper lobe and right middle lobe. There is a 4 mm pulmonary nodule, right lower lobe, image 216/4 . There is also a 3 mm pulmonary nodule, right lower lobe, image 220/4. Mediastinum: Heart size is normal. No pericardial effusion. At least moderate coronary artery calci fications. Great vessel origin calcifications. No mediastinal adenopathy by size criteria. Thoracic aorta and central pulmonary arteries are normal in size. Esophagus is normal in caliber. No hiatal hernia. Bones and chest wall: No suspicious bony lesions. Multiple old compression fractures. This results i n mild increase in the thoracic kyphosis. No axillary or supraclavicular adenopathy by size criteria. The thyroid is normal in size and there are no incidental findings. Abdomen: There is a 9 mm nonobstructing left renal stone. Visualized upper abdomen solid organs and bowel loops otherwise appear normal in the absence of contrast. IMPRESSION: 1. LungRads Category 2: Benign appearance or behavior-nodules with a very low likelihood of becoming a clinically active cancer due to size or lack of growth. 2. Annual follow-up low-dose noncontrast CT of the chest is recommended for lung cancer screening. 3. Clinically significant or potentially clinically significant findings (nonlung cancer): Advanced p ulmonary emphysema, coronary artery disease, ASCVD, probable osteoporotic compressions, left renal st one CLINICAL RECOMMENDATION STATEMENTS: In patients <35 years with an ITN detected on CT, MRI, or extrathyroidal ultrasound, the Committee re commends further evaluation with dedicated thyroid ultrasound if the nodule is ?1 cm and has no suspi cious imaging features, and if the patient has normal life expectancy. In patients ?35 years with an ITN detected on CT, MRI, or extrathyroidal ultrasound, the Committee re commends further evaluation with dedicated thyroid ultrasound if the nodule is ?1.5 cm and has no beata picious imaging features, and if the patient has normal life expectancy. (ACR, 2014) Reviewed by: Kain Francis MD on 08/15/2020 3:49 PM PDT Approved by: Kain Francis MD on 08/15/2020 3:49 PM PDT Station ID: [id number]
== END 2020-08-15 13:16 | disposition home or self-care (01) ==
LOC: DI 13:15
PROVIDERS: ATTEND Internal Medicine
DX: Z12.2 Encounter for screening for malignant neoplasm of respiratory organs (principal); F17.210 Nicotine dependence, cigarettes, uncomplicated; J43.9 Emphysema, unspecified

== ENCOUNTER 2020-08-27 11:56 | Outpatient (CLI) | payer MEDICARE, MEDICAID | END 2020-08-27 11:57 | disposition EMS.NT | LOC: EMS 11:56 | DX: R42 Dizziness and giddiness (principal) ==

== ENCOUNTER 2021-11-26 10:59 | Outpatient (CLI) | payer MEDICARE, MEDICAID ==
--- NOTE | 2021-11-26 20:15 | XRAY Report ---
PROCEDURE: Chest 2 View X-Ray INDICATIONS: MULTIPLE NODULES IN LUNG TECHNIQUE: 2 view(s) of the chest. COMPARISON: Chest CT 08/15/2020, chest radiographs 07/26/2020. FINDINGS: Surgical changes and devices: None. Lungs and pleura: The lungs are hyperexpanded consistent with COPD. Previously seen subcentimeter pu lmonary nodules are adequately assessed with chest radiographs. No acute consolidation. No pleural ef fusion or pneumothorax. Mediastinum: Mediastinal contours are normal. Heart size is normal. Bones and chest wall: No suspicious bony abnormalities. Soft tissues appear unremarkable. Chronic healed right-sided rib fractures are noted. IMPRESSION: 1.Bilateral emphysematous changes. 2.Previously seen small pulmonary nodules are not well evaluated radiographically. Recommend low-dose chest CT for further evaluation. Reviewed by: Angel Sanders MD on 11/26/2021 8:14 PM PDT Approved by: Angel Sanders MD on 11/26/2021 8:14 PM PDT Station ID: [id number]
== END 2021-11-26 11:00 | disposition home or self-care (01) ==
LOC: DI.S 10:59
PROVIDERS: ATTEND Registered Nurse
DX: R91.8 Other nonspecific abnormal finding of lung field (principal); J43.9 Emphysema, unspecified; R09.02 Hypoxemia; R06.02 Shortness of breath; F17.210 Nicotine dependence, cigarettes, uncomplicated

== ENCOUNTER 2021-12-25 11:57 | Outpatient (CLI) | payer MEDICARE, MEDICAID | END 2021-12-25 11:58 | disposition home or self-care (01) | LOC: LAB 11:57 | PROVIDERS: ATTEND Internal Medicine | DX: J44.9 Chronic obstructive pulmonary disease, unspecified (principal); Z20.822 Contact with and (suspected) exposure to COVID-19 ==

== ENCOUNTER 2022-03-23 03:09 | Outpatient (CLI) | payer MEDICARE, MEDICAID | END 2022-03-23 03:10 | disposition E | LOC: EMS 03:09 | DX: I46.9 Cardiac arrest, cause unspecified (principal) | CPT/HCPCS: A0425; A0428 ==